=== PATIENT | male | born 1945 | race Caucasian/White ===

== ENCOUNTER 2019-07-11 16:58 | Emergency (ER) | payer BC, OTHER ==
[~2019-07-11] VITALS: Ht 172.7 cm; Wt 71.6 kg
[2019-07-11 17:00] VITALS: BP 136/67
--- NOTE | 2019-07-11 17:34 | NUR ---
PT INSTRUCTED ON CLEAN CATCH URINE COLLECTION.
[2019-07-11 17:40] LABS: BASOPHILS # (AUTO) 0.02 x10^3/uL (0-0.1); BASOPHILS % (AUTO) 0 % (0-1); EOSINOPHILS # (AUTO) 0.11 x10^3/uL (0-0.4); EOSINOPHILS % (AUTO) 2 % (1-7); LYMPHOCYTES # (AUTO) 0.73 x10^3/uL (1-3.4); LYMPHOCYTES % (AUTO) 11 % (22-44); MD NO; MEAN CORPUSCULAR HEMOGLOBIN 32.2 pg (27.5-34.5); MEAN CORPUSCULAR HGB CONC 33.1 g/dL (33.2-36.2); MEAN CORPUSCULAR VOLUME 97.4 fL (81-97); MEAN PLATELET VOLUME 8.3 fL (7.4-10.4); MONOCYTES # (AUTO) 0.51 x10^3/uL (0.2-0.8); MONOCYTES % (AUTO) 7 % (2-9); NEUTROPHILS # (AUTO) 5.57 x10^3/uL (1.8-6.8); NEUTROPHILS % (AUTO) 80 % (42-75); PLATELET COUNT 201 x10^3/uL (130-400); RED BLOOD COUNT 4.37 x10^6/uL (4.38-5.82)
[2019-07-11 17:47] LABS: ALBUMIN 3.8 g/dL (3.4-5.0); ANION GAP 7 mmol/L (5-15); CALCIUM 8.6 mg/dL (8.5-10.1); CHLORIDE 111 mmol/L (98-107); CREATININE 1.36 mg/dL (0.7-1.3)
--- NOTE | 2019-07-11 18:27 | NUR ---
URINE TO LAB
[2019-07-11 18:45] LABS: MICROSCOPIC INDICATED
[2019-07-11 18:56] LABS: CULTURE INDICATED? NO
--- NOTE | 2019-07-11 19:17 | NUR ---
BREAK RN: PT. AWARE OF PLAN FOR D/C. AWAITING PAPERS.
== END 2019-07-11 19:45 | disposition home or self-care (01) ==
LOC: ED 19:15
DX: N13.2 Hydronephrosis with renal and ureteral calculous obstruction (principal); I48.91 Unspecified atrial fibrillation
CPT/HCPCS: 36415; 74176; 80048; 81001; 82040; 85025; 99284

== ENCOUNTER 2019-07-14 14:36 | Observation (INO) | payer BC ==
[~2019-07-14] VITALS: Ht 172.7 cm; Wt 73.8 kg
[2019-07-14] MEDS ORDERED: LACTATED RINGERS 1,000 ML IV SCH ×2 (14:58→15:34)
[2019-07-14] MEDS ORDERED: RIVA10TA2 PO (15:15)
[2019-07-14] MEDS ORDERED: HYDR-3237 PO (15:15)
[2019-07-14] MEDS ORDERED: TAMS-11 PO (15:15)
[2019-07-14] MEDS ORDERED: FLEC150T PO (15:15)
[2019-07-14] MEDS ORDERED: ROSU5TAB PO (15:15)
[2019-07-14 15:19] VITALS: BP 146/77
[2019-07-14] MEDS ORDERED: PLEASE ENTER HEIGHT AND WEIGHT MC SCH (15:30)
[2019-07-14] MEDS ORDERED: FENTANYL PF 100 MCG/2ML ONE (16:51)
[2019-07-14] MEDS ORDERED: CEFAZOLIN 1,000 MG ONE (18:07)
[2019-07-14] MEDS ORDERED: PROPOFOL 10 MG/ML, 20ML ONE (18:07)
[2019-07-14] MEDS ORDERED: ONDANSETRON 2MG/ML, 2ML ONE (18:07)
[2019-07-14] MEDS ORDERED: GLYCOPYRROLATE 0.2MG/1ML, 5ML ONE (18:07)
[2019-07-14] MEDS ORDERED: DEXAMETHASONE 4 MG/ML, 1ML ONE (18:07)
[2019-07-14] MEDS ORDERED: ROCURONIUM 10MG/ML,5ML ONE (18:07)
[2019-07-14] MEDS ORDERED: SUCCINYLCHOLINE 20 MG/ML, 10ML ONE (18:07)
[2019-07-14] MEDS ORDERED: NEOSTIGMINE 1 MG/ML, 10ML ONE (18:07)
[2019-07-14] MEDS ORDERED: OXYcodone 5 MG/5 ML ORAL.SOL UDC PO PRN (18:30)
[2019-07-14] MEDS ORDERED: hydrALAzine 20 MG/ML, 1ML IV PRN (18:30)
[2019-07-14] MEDS ORDERED: MEPERIDINE/PF 25MG/0.5ML IVPush PRN (18:30)
[2019-07-14] MEDS ORDERED: DIAZEPAM 5 MG/ML, 2ML IVPush PRN (18:30)
[2019-07-14] MEDS ORDERED: KETOROLAC 30 MG/1 ML IV PRN (18:30)
[2019-07-14] MEDS ORDERED: PROMETHAZINE 25 MG/ML, 1ML IV PRN (18:30)
[2019-07-14] MEDS ORDERED: HYDROmorphone 2 MG/ML, 1ML IVPush PRN (18:30)
[2019-07-14] MEDS ORDERED: LABETALOL 5MG/ML, 20ML IV PRN (18:30)
[2019-07-14] MEDS ORDERED: ALBUTEROL SULFATE 2.5 MG/3 ML NPPB PRN (18:30)
[2019-07-14] MEDS ORDERED: FENTANYL PF 100 MCG/2ML IV PRN (18:30)
[2019-07-14] MEDS ORDERED: ACETAMINOPHEN 325 MG TABLET PO PRN (18:30)
[2019-07-14] MEDS ORDERED: HYDROmorphone 1 MG/ML, 1ML INJ ONE (19:00)
[2019-07-14] MEDS ORDERED: hydrALAzine 20 MG/ML, 1ML ONE (19:29)
[2019-07-14 20:58] VITALS: BP 152/76
[2019-07-14] MEDS ORDERED: HYDROmorphone 1 MG/ML, 1ML INJ IV PRN (21:30)
[2019-07-14] MEDS ORDERED: OXYcodone/APAP 5/325MG TABLET PO PRN (21:30)
[2019-07-14] MEDS ORDERED: ONDANSETRON 2MG/ML, 2ML IV PRN (21:30)
[2019-07-14] MEDS ORDERED: DIPHENHYDRAMINE 50 MG/ML, 1ML IV PRN (21:30)
[2019-07-14] MEDS ORDERED: ATORVASTATIN 20 MG TABLET PO SCH (22:23)
[2019-07-14] MEDS: FLECAINIDE 50MG TABLET PO SCH (22:30)
[2019-07-14] MEDS: LACTATED RINGERS 1,000 ML IV SCH (22:32)
[2019-07-15] VITALS: BP 112/65
[2019-07-15 04:01] VITALS: BP 112/60
[2019-07-15] MEDS: LACTATED RINGERS 1,000 ML IV SCH (05:30)
[2019-07-15 06:54] VITALS: BP 127/68
[2019-07-15] MEDS: FLECAINIDE 50MG TABLET PO SCH (08:23)
[2019-07-15] MEDS ORDERED: TAMSULOSIN 0.4 MG CAP.ER.24H PO SCH (09:00)
[2019-07-15] MEDS ORDERED: OXYBUTYNIN CHLORIDE 5 MG TABLET PO PRN (09:30)
[2019-07-15] MEDS ORDERED: OXYB10TA6 PO (10:17)
[2019-07-15] MEDS ORDERED: POLY17PO5 PO (10:17)
[2019-07-15] MEDS ORDERED: DOCU-131 PO (10:18)
[2019-07-15] MEDS ORDERED: PHEN100T90 PO (10:20)
[2019-07-15] MEDS ORDERED: HYDR-3240 PO (10:21)
== END 2019-07-15 11:21 | disposition home or self-care (01) ==
LOC: OR 14:36 → 4NE 20:30 → OR 21:07 → DCLOUNGE 07-15 11:05
PROVIDERS: ADMIT Student in an Organized Health Care Education/Training Program; ATTEND Student in an Organized Health Care Education/Training Program
DX: N20.1 Calculus of ureter (principal); N35.919 Unspecified urethral stricture, male, unspecified site; E78.5 Hyperlipidemia, unspecified; I10 Essential (primary) hypertension; E11.9 Type 2 diabetes mellitus without complications; I48.91 Unspecified atrial fibrillation; N40.0 Benign prostatic hyperplasia without lower urinary tract symptoms; Z79.899 Other long term (current) drug therapy
CPT/HCPCS: 52281; 52356; 74018; 76000; 93005; C1769; C2617; G0378; J0330; J0360; J0690; J1100; J1170; J2405; J2704; J3010; J7120; J2710